=== PATIENT | female | born 1975 | race Caucasian/White ===

== ENCOUNTER 2020-03-02 19:05 | Emergency (ER) | payer MEDICAID ==
--- NOTE | 2020-03-02 19:18 | EDM.PDOC ---
<Von Obrien - Last Filed: 03/02/20 19:13> ED HPI GENERAL MEDICAL PROBLEM - General Chief Complaint: Lower Extremity Injury/Pain Stated Complaint: FOOT INJURY Time Seen by Provider: 03/02/20 19:13 - History of Present Illness INITIAL COMMENTS - FREE TEXT/NARRATIVE: 44-year-old female presents the emergency room with a left ankle and foot injury. The patient was side skate in the area wearing flip-flops and walking up some uneven ground managed to twist her ankle she heard a pop. Now she has foot and ankle pain. Patient denies any other injuries associated with this most unfortunate event. Her past medical history significant for seizure disorder she does not know what she is taking for this. But she says it is been a while since she is had her last seizure. - Related Data Allergies Allergy/AdvReac Type Severity Reaction Status Date / Time No Known Allergies Allergy Verified 03/02/20 19:22 Home Meds: Home Meds Omeprazole Magnesium [Prilosec Otc] 20 mg PO DAILY 03/02/20 [History] Seizure Med 0 mg PO DAILY 03/02/20 [History] Review of Systems - Review of Systems Review Of Systems: See Below Constitutional: Reports: No Symptoms Respiratory: Reports: No Symptoms Cardiovascular: Reports: No Symptoms GI/Abdominal: Reports: No Symptoms ED EXAM, GENERAL - Physical Exam Exam: See Below Exam Limited By: Other (He has somewhat garbled speech and then with a southern type accient. She says she has had speech difficulties ever since having seizu res) General Appearance: Alert, No Apparent Distress Head: Atraumatic, Normocephalic Neck: Normal Inspection, Supple, Non-Tender, Full Range of Motion Respiratory/Chest: No Respiratory Distress, Lungs Clear, Normal Breath Sounds Cardiovascular: Regular Rate, Rhythm, No Edema, No Murmur Extremities: Other (To the left lower leg shows some swelling around the lateral malleolus over the anterior talofibular and calcaneofibular ligaments. She has diffuse foot tenderness albeit no obvious deformity neurovascular status appears to be intact. She has no tib-fib tenderness and palpation of the tibial fib on down to the ankle is nontender) Neurological: Alert, Oriented, Normal Cognition Departure - Departure Disposition: Home, Self-Care 01 Clinical Impression: Left ankle injury Qualifiers: Encounter type: initial encounter Qualified Code(s): S99.912A - Unspecified injury of left ankle, initial encounter - Discharge Information Instructions: Ankle Sprain, [id number] Forms: ED Department Discharge Additional Instructions: You have been evaluated in the ED for your left ankle injury. Your x-ray demonstrated no acute fracture or other bony abnormality. It is likely that you have strained or sprained your left ankle. Please use ice as tolerated to the affected area. Please try to elevate the affected area to relieve swelling. You have been given a walking boot for management. Please wear as tolerated while walking to provide stabilization of your left ankle. You may take Tylenol 500 mg or ibuprofen 600mg q6 hrs for pain relief. Please do so until you have a tolerable level of pain with activity. Do not exceed 4000mg Tylenol or 3200mg ibuprofen in a 24 hour time period. Recommend you follow-up in clinic, sometime this week for reexamination and to make sure everything is getting better as expected. If you should want to follow-up with the computer systems support specialist, his name is Dr. Owens and his office number [phone]. You may call this to schedule an appointment; otherwise our clinic number [phone]. Please return to ED if your symptoms should change or worsen. <Iliana Bullock V - Last Filed: 03/02/20 21:17> ED HPI GENERAL MEDICAL PROBLEM Left Ankle Pain Score (Numeric/FACES): 10 Course - Vital Signs Last Recorded V/S: Last Vital Signs Temp 97.4 F 03/02/20 19:28 Pulse 97 03/02/20 19:28 Resp 20 03/02/20 19:28 BP 144/98 H 03/02/20 19:28 Pulse Ox 98 03/02/20 19:28 - Orders/Labs/Meds Orders: Active Orders 24 hr Category Date Time Status Ankle Min 3V Lt [CR] Stat Exams 03/02/20 19:26 Ordered Foot Comp Min 3V Lt [CR] Stat Exams 03/02/20 19:26 Ordered - Re-Assessments/Exams Free Text/Narrative Re-Assessment/Exam: 03/02/20 21:12 The patient's ankle and foot x-rays have been obtained, demonstrate no focal abnormalities. These were reviewed by myself and Dr. Obrien. Dr. Obrien did get busy with more acute patients, and asked me to take over. Will place the patient in a walking boot and have her follow-up in clinic, and follow general conservative measures at this time. Departure - Departure Time of Disposition: 21:12 Condition: Good - Discharge Information *PRESCRIPTION DRUG MONITORING PROGRAM REVIEWED*: No *COPY OF PRESCRIPTION DRUG MONITORING REPORT IN PATIENT SANTIAGO: No Sepsis Event Note (ED) - Focused Exam Vital Signs: Vital Signs Temp Pulse Resp BP Pulse Ox 03/02/20 19:28 97.4 F 97 20 144/98 H 98
--- NOTE | 2020-03-03 12:28 | CR ---
Left ankle: 3 views left ankle were obtained. Comparison: No previous left ankle study. Ankle mortise is symmetric. Small bony density compatible with old injury is noted off the inferior fibula. No acute fracture, dislocation or other bony abnormality is appreciated. Impression: 1. Old injury off the distal fibula. 2. Nothing acute is appreciated on three-view left ankle exam. Diagnostic code #2 This report was dictated in [facility]T
--- NOTE | 2020-03-03 13:25 | CR ---
Left foot: 3 views of the left foot were obtained. Comparison: No prior foot exam. No acute fracture, dislocation or other bony abnormality is appreciated. Impression: 1. No abnormality is appreciated on three-view left foot exam. Diagnostic code #1 This report was dictated in MDT
== END 2020-03-02 21:30 | disposition home or self-care (01) ==
LOC: JD.ED 19:05 → EDBD 19:05 → JD.ED 21:30
DX: S99.912A Unspecified injury of left ankle, initial encounter (principal); X50.1XXA Overexertion from prolonged static or awkward postures, initial encounter; Y93.01 Activity, walking, marching and hiking
CPT/HCPCS: 73610-26-LT; 73610-LT; 73630-26-LT; 73630-LT; 99282; 99283-25